=== PATIENT | male | born 1995 | race Caucasian/White ===

== ENCOUNTER 2020-02-15 18:39 | Emergency (ER) | payer SELFPAY ==
[~2020-02-15] VITALS: Ht 165.1 cm; Wt 140.2 kg
[2020-02-15 18:52] VITALS: Ht 165.1 cm; Wt 140.2 kg
[2020-02-15 21:08] LABS: BASOPHIL % 0.2 % (0-2); PLATELET COUNT 344 x10^3mcL (130-400); RED CELL DISTRIBUTION WIDTH 13.2 % (11.5-14.5)
[2020-02-15 21:17] LABS: UA SPECIFIC GRAVITY 1.015 (1.005-1.035); microscopic required? YES; urine erythrocyte NEGATIVE (NEGATIVE)
[2020-02-15 21:18] LABS: CARBON DIOXIDE 26.4 mmol/L (21-32); CHLORIDE SERUM 101 mmol/L (98-107); CREATININE SERUM 0.9 mg/dL (0.7-1.3); GFR1 > 60 mL/min; GLUCOSE SERUM 164 mg/dL (74-106); POTASSIUM SERUM 3.7 mmol/L (3.5-5.1); SODIUM SERUM 136 mmol/L (136-145)
[2020-02-15 21:22] LABS: ALBUMIN 3.8 g/dL (3.4-5.0); ALKALINE PHOSPHATASE 122 U/L (46-116); ALT/SGPT 166 U/L (16-63); AST/SGOT 86 U/L (15-37); BILIRUBIN TOTAL 0.43 mg/dL (0.20-1.00)
[2020-02-15 21:30] VITALS: BP 132/87
[2020-02-15 21:30] LABS: TOTAL PROTEIN, SERUM 8.5 g/dL (6.4-8.2)
[2020-02-15 21:43] LABS: AMPHETAMINE QUAL UR NONE DETECTED (See below)
[2020-02-15 21:54] LABS: FREE T4 1.32 ng/dL (0.76-1.46); FREE THYROXINE INDEX 3.9 ug/dL (1.4-4.5)
[2020-02-15 22:09] LABS: T3 TOTAL 1.5 ng/mL
== END 2020-02-15 23:16 | disposition home or self-care (01) ==
LOC: ED 18:39
PROVIDERS: Emergency Medicine
DX: G47.00 Insomnia, unspecified (principal); R42 Dizziness and giddiness; R94.5 Abnormal results of liver function studies; F17.210 Nicotine dependence, cigarettes, uncomplicated
CPT/HCPCS: 84439; 99406